=== PATIENT | female | born 1950 | race Caucasian/White ===

== ENCOUNTER → 2019-05-05 | Outpatient (CLI) | payer MEDICARE, OTHER ==
[~2019-05-05] MED LIST: REGADENOSON 0.4 MG/5 ML DISP.SYRIN. IV ONE
--- NOTE | 2019-05-05 11:56 | PCVCIMAG ---
APPROVED REPORT Imaging Protocol: Rest Tc-99m/Stress Tc-99m 1 day Study performed: 05/05/2019 09:27:15 Indication: Syncope Patient Location: Out-Patient Stress Nurse: Saloni Gregorio RN, Kelsey Brooks RN DE Tech:Karen Dewittdanny [facility] Ht: 5 ft 2 in Wt: 165 lbs BSA: 1.76 m2 HR: 71 bpm BP: 126/60 mmHg BMI: 30.17 Rhythm: Normal Sinus Rhythm Medical History Medical History: Former Smoker Medications: Albuterol, Meloxicam, Protonix Allergies: Codeine Cardiac Risk Factors: Age Pretest Chest Pain Characteristics: No chest pain Exercise History: Indeterminate Resting Data Rest SPECT myocardial perfusion imaging was performed in supine position 45 minutes following the intravenous injection of 10.3 mCi of Tc-99m Sestamibi. Time of rest injection: 0900 Date: 05/05/2019 Administration Route: IV Administration Site: Left AC Pharmacologic Stress Pharmacologic stress test was performed by injecting Regadenoson 0.4 mg IV push over 10-15 seconds immediately followed by the intravenous injection of 31.2 mCi of Tc-99m Sestamibi. Time of stress injection: 1010 Date: 05/05/2019 Administration Route: IV Administration Site: Left AC Gated Stress SPECT was performed 45 minutes after stress injection. The images were gated to evaluate regional wall motion and calculate left ventricular ejection fraction. Stress Test Details Stress Test: Pharmacologic stress was paired with low level exercise. Reason for pharmacologic stress test: physical limitation. HRMax Heart Rate (APMHR): 154 bpm Resting HR: 71 bpmTarget HR (85% APMHR): 130 bpm Max HR Achieved: 105 bpm % of APMHR: 68 Recovery HR: 82 bpm BP Resting BP: 126/60 mmHg Max BP: 108/60 mmHg Recovery BP: 119/56 mmHg ECG Resting ECG: Normal Sinus Rhythm Stress ECG: Sinus Tachycardia Arrhythmia: None Recovery ECG: Sinus Rhythm Clinical Reason for Termination: Completed protocol Stress Symptoms: Dyspnea Exercise duration: 4 min 00 sec Exercise capacity: 1.6 METs Symptoms resolved with caffeine. Stress ECG Conclusion 1. Adequate response to intravenous Lexiscan 2. Inadequate heart rate for ECG diagnosis Study Data Post stress, the left ventricular ejection was 68%.. SSS: 0 SRS: 12 SDS: 0 TID = 0.95. Perfusion There is a medium area of moderately reduced uptake in the apical segment of the anterior wall which is seen on the stress images as well as the resting images. This area thickens and moves normally and is most consistent with attenuation artifact. Nuclear Conclusion ECG Findings: non-diagnostic Clinical Findings: negative for ischemia Nuclear Findings: negative for ischemia Exercise Capacity: not assessed Left Ventricular Function: normal 1. Low risk study 2. Post exercise left ventricular ejection fraction 68% without wall motion abnormalities <Conclusion> 1. Adequate response to intravenous Lexiscan 2. Inadequate heart rate for ECG diagnosis
--- NOTE | 2019-05-05 11:59 | PCVCIMAG ---
APPROVED REPORT Study performed: 05/05/2019 08:07:31 EXAM: Comprehensive 2D, Doppler, and color-flow Echocardiogram Patient Location: Echo lab Room #: 3Status: routine BSA: 1.76 HR: 63 bpmBP: 115/50 mmHg Rhythm: NSR Other Information Study Quality: Adequate Indications Syncope 2D Dimensions IVSd: 9.06 (7-11mm)LVOT Diam: 18.00 (18-24mm) LVDd: 40.45 mm PWd: 9.26 (7-11mm)Ascending Ao: 26.45 (22-36mm) LVDs: 26.92 (25-40mm) Left Atrium: 35.65 (27-40mm) Aortic Root: 26.25 mm LV Single Plane 4CH: 58.26 % LV Single Plane 2CH: 67.62 % Biplane EF: 62.6 % Volumes Left Atrial Volume (Systole) Single Plane 4CH: 40.50 mLSingle Plane 2CH: 29.86 mL LA ESV Index: 20.00 mL/m2 Aortic Valve AoV Peak Mikel.: 1.41 m/s AO Peak Gr.: 7.95 mmHgLVOT Max P.53 mmHg LVOT Max V: 0.94 m/s ALLI Vmax: 1.63 cm2 Mitral Valve E/A Ratio: 0.9 MV Decel. Time: 261.55 ms MV E Max Mikel.: 0.80 m/s MV A Mikel.: 0.88 m/s IVRT: 58.82 ms TDI E/Lateral E': 8.00E/Medial E': 16.00 Medial E' Mikel.: 0.05 m/s Preload (E/e): 0.00 (0-8m/s)Lateral E' Mikel.: 0.10 m/s Pulmonary Valve PV Peak Mikel.: 0.97 m/sPV Peak Gr.: 3.75 mmHg Pulmonary Vein P Vein S: 0.65 m/sP Vein A: 0.31 m/s P Vein D: 0.29 m/sP Vein A Dur.: 100.3 msec P Vein S/D Ratio: 2.24 Tricuspid Valve RAP Estimate: 7.00 mmHg Left Ventricle The left ventricle is normal size. There is normal LV segmental wall motion. There is normal left ventricular wall thickness. Left ventricular systolic function is normal. The left ventricular ejection fraction is within the normal range. LVEF is 60-65%. The left ventricular diastolic function is normal. Right Ventricle The right ventricle is normal size. The right ventricular systolic function is normal. Atria The left atrium size is normal. The right atrium size is normal. Aortic Valve The aortic valve is normal in structure. No aortic regurgitation is present. There is no aortic valvular stenosis. Mitral Valve The mitral valve is normal in structure. Trace mitral regurgitation. No evidence of mitral valve stenosis. Tricuspid Valve The tricuspid valve is normal in structure. Trace tricuspid regurgitation. Unable to assess PA pressure. Pulmonic Valve The pulmonary valve is normal in structure. There is no pulmonic valvular regurgitation. Great Vessels The aortic root is normal in size. IVC is normal in size and collapses >50% with inspiration. Pericardium There is no pericardial effusion. <Conclusion> The left ventricle is normal size. LVEF is 60-65%. The aortic valve is normal in structure. The mitral valve is normal in structure. Trace mitral regurgitation. The tricuspid valve is normal in structure. Trace tricuspid regurgitation. Unable to assess PA pressure. The pulmonary valve is normal in structure. There is no pericardial effusion.
== END | disposition home or self-care (01) ==
LOC: PCVCIMAG 07:54
PROVIDERS: ATTEND Internal Medicine
DX: R55 Syncope and collapse (principal); E78.5 Hyperlipidemia, unspecified; M54.30 Sciatica, unspecified side; Z87.891 Personal history of nicotine dependence
CPT/HCPCS: 36415; 78452; 80061; 93017; 93306; A9500; G0463; J2785

== ENCOUNTER → 2019-08-05 | Outpatient (CLI) | payer MEDICARE, OTHER | END | disposition home or self-care (01) | LOC: PCVCCLINIC 09:00 | PROVIDERS: ATTEND Internal Medicine | DX: E78.5 Hyperlipidemia, unspecified (principal); R55 Syncope and collapse | CPT/HCPCS: 36415; 80061 ==